=== PATIENT | female | born 1990 | race Hispanic/Latino ===

== ENCOUNTER 2021-11-16 22:24 | Emergency (ER) | payer OTHER ==
[~2021-11-16] VITALS: Ht 160 cm; Wt 42.6 kg
[2021-11-16] MEDS ORDERED: MUPIROCIN22 GM TOP (23:15)
[2021-11-16 23:29] VITALS: BP 122/69
== END 2021-11-16 23:29 | disposition home or self-care (01) ==
LOC: FSED 23:10
DX: T24.202A Burn of second degree of unspecified site of left lower limb, except ankle and foot, initial encounter (principal); T25.222A Burn of second degree of left foot, initial encounter; X10.2XXA Contact with fats and cooking oils, initial encounter; Y93.G3 Activity, cooking and baking; Y92.098 Other place in other non-institutional residence as the place of occurrence of the external cause
CPT/HCPCS: 99282